=== PATIENT | female | born 1980 | race Two or more races ===

== ENCOUNTER 2018-04-25 18:02 | Emergency (ER) | payer SELFPAY ==
[~2018-04-25] VITALS: Ht 170.2 cm; Wt 74.8 kg
[2018-04-25] MEDS ORDERED: HALOPERIDOL LACTATE INJ 5 MG/ML VIAL ONE (18:14)
[2018-04-25] MEDS ORDERED: diphenhydrAMINE HCL 50 MG/ML VIAL ONE (18:14)
[2018-04-25] MEDS ORDERED: LORAZEPAM INJ 2 MG/ML VIAL ONE (18:14)
--- NOTE | 2018-04-25 18:15 | NUR ---
PT BIBRA WITH [employer] FROM HOME FOR AGITATION AND ACTING STRANGER THAN USUAL; PT AOX1, NOT ANSWERING QUESTION APPROPRIATELY, RESPIRATIONS EVEN AND UNLABORED, NO SOB, NAD NOTED, PT ON MONITOR, PENDING ER PROVIDER KALPESH
[2018-04-25 18:27] LABS: BASOPHILS # (AUTO) 0.1 /CMM (0.0-0.2); BASOPHILS % (AUTO) 0.8 % (0.0-2.0); EOSINOPHILS % (AUTO) 1.1 % (0.0-6.0); HEMATOCRIT 43 % (33-45); LYMPHOCYTES # (AUTO) 2.5 /CMM (0.8-4.8); LYMPHOCYTES % (AUTO) 31.4 % (20.0-44.0); MEAN CORPUSCULAR HGB CONC 32 g/dl (31.0-36.0); MEAN CORPUSCULAR VOLUME 85 fL (82-100); MONOCYTES # (AUTO) 0.6 /CMM (0.1-1.30); MONOCYTES % (AUTO) 6.9 % (2.0-12.0); NEUTROPHILS # (AUTO) 4.8 /CMM (1.8-8.9); NEUTROPHILS % (AUTO) 59.8 % (43.0-81.0); PLATELET COUNT (AUTO) 338 /CMM (150-450); RED BLOOD CELL COUNT(AUTO) 5.07 MIL/uL (4.0-5.2); WHITE BLOOD COUNT (AUTO) 8.1 K/uL (4.3-11.0)
[2018-04-25] MEDS ORDERED: diphenhydrAMINE HCL 50 MG/ML VIAL IM ONE (18:30)
[2018-04-25] MEDS ORDERED: LORAZEPAM INJ 2 MG/ML VIAL IM ONE (18:30)
[2018-04-25] MEDS ORDERED: HALOPERIDOL LACTATE INJ 5 MG/ML VIAL IM ONE (18:30)
[2018-04-25 18:42] LABS: ALANINE AMINOTRANSFERASE 16 U/L (12-78); ALBUMIN 3.7 g/dL (3.4-5.0); ALCOHOL, BLOOD < 3 mg/dL (0-0); ALKALINE PHOSPHATASE 94 U/L (46-116); ASPARTATE AMINOTRANSFERASE 20 U/L (15-37); BILIRUBIN,DIRECT 0.2 mg/dL (0.0-0.2); BILIRUBIN,TOTAL 0.7 mg/dL (0.2-1.0); CALCIUM, SERUM 8.9 mg/dL (8.5-10.1); CARBON DIOXIDE 31 mmol/L (21-32); CHLORIDE 104 mmol/L (98-107); CREATININE 0.6 mg/dL (0.6-1.3); GLUCOSE 146 mg/dL (74-106); POTASSIUM 3.2 mmol/L (3.5-5.1); SODIUM SERUM 142 mmol/L (136-145); TOTAL PROTEIN, SERUM 7.4 g/dL (6.4-8.2); UREA NITROGEN, BLOOD 9 mg/dL (7-18)
[2018-04-25 18:46] LABS: ACETAMINOPHEN < 2 ug/ml (10-30); SALICYLATE 0.6 mg/dL (2.8-20.0)
[2018-04-25 19:14] LABS: APPEARANCE,URINE Cloudy (CLEAR); BILIRUBIN,URINE Negative (NEGATIVE); BLOOD, URINE Large Ery/uL (NEGATIVE); COLOR,URINE Brown (YELLOW); KETONES,URINE Trace (NEGATIVE); LEUKOCYTE ESTERASE ,URINE Small (NEGATIVE); NITRITE, URINE Negative (NEGATIVE); PROTEIN,URINE 100 mg/dl (NEGATIVE); UGLUCOSE Negative (NEGATIVE)
[2018-04-25 19:20] LABS: BACTERIA,URINE 1+ /HPF (None Seen); SQUAMOUS EPITHELIAL CELL,UR Few /HPF (None Seen)
--- NOTE | 2018-04-25 20:15 | NUR ---
PT STATES HER NAME IS BOAZ HALEY [birth year]
--- NOTE | 2018-04-26 01:04 | NUR ---
Patient is resting comfortably in bed with eyes closed. Easily aroused. VSS
--- NOTE | 2018-04-26 07:41 | NUR ---
Pt is resting comfortably on continuous inclusion manager. No acute s/s of distress noted. Will continue to monitor.
--- NOTE | 2018-04-26 08:39 | NUR ---
MOM CALLED,WHEN ASKED IF SHE'S ABLE TO PICK HER UP WHEN DISCHARGED,SHE SAID,"I HAVE A PROBLEM,AND HERE'S THE PROBLEM ,OK, IT' SUPERBOWL TODAY AND MY IS NOT HERE."WHEN ASKED AGAIN IF SHE IS ABLE TO PICK HER UP, SHE SAID NO.
--- NOTE | 2018-04-26 10:55 | NUR ---
AWAKE/ALERT ORIENTED X 4,DENIES SI/HI,CALM,COOPERATIVE ASKING FOR A RIDE TO HER APARTMENT, HOUSE SUP CALLED FOR A TAP CARD FOR [place].
--- NOTE | 2018-04-26 11:05 | NUR ---
MOM CALLED SAYING THAT SHE WAS TRYING TO JUMP OFF OF HER APARTMENT,DR VASQUES INFORMED AND THAT SHE DENIED SI/HI AND WAS CLEARED ALREADY.
--- NOTE | 2018-04-26 12:02 | NUR ---
Patient discharged to home in stable condition. Written and verbal after care instructions given. Patient verbalizes understanding of instruction.
[2018-04-26 12:03] VITALS: BP 133/85
== END 2018-04-26 12:04 | disposition home or self-care (01) ==
LOC: ER 18:06
DX: F15.129 Other stimulant abuse with intoxication, unspecified (principal); R45.1 Restlessness and agitation
CPT/HCPCS: 36415; 80048; 80076; 80305; 80307; 80329; 81001; 85025; 87086; 96372 ×2; 99283; A4606; G0480; J1200; J1630; J2060; 81000-TC